=== PATIENT | female | born 1995 | race Two or more races ===

== ENCOUNTER → 2023-10-13 10:58 | Outpatient (BNV) | payer OTHER, SELFPAY ==
--- NOTE | 2023-10-13 10:58 | A.OFFVIS_ITS ---
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 she just recently stopped her son. 15 months. she has had no periods since becoming wtih him. she would like to be . with same partner that is father to her 2 boys. prior to she was on nexplanon and so she hasnt had enough recent cyc les to know if they were regular or not. she wonders about because of her emotions and her gums are bleeding which happened before during pregnancies. not worreid about her gums otherwise. Review of Systems Const Details: Counseling visit: All systems reviewed & are unremarkable except as noted in HPI and below Reports as per HPI Resp Reports as per HPI GI Reports as per HPI Musc Reports as per HPI Neuro Reports as per HPI Psych Reports as per HPI Physical Exam Const General: cooperative, healthy appearing and no acute distress Nutritional Appearance: well nourished Orientation/consciousness: oriented to person Limitations: no limitations HEENT Other: wnl Eyes Other: wnl Chest Other: easy breathing Resp Effort & Inspection: able to speak in complete sentences Skin Other: normal in appearance Neuro General: oriented to person Psych Other: see HPI Mental Status: mental status grossly normal Speech and movement: Clear speech present Attitude: cooperative Thought process: Normal thought process present Assessment & Plan Assessment & Plan (1) Irregular menstrual bleeding: Code(s): N92.6 - Irregular menstruation, unspecified Category: Medical Plan her urine test was negative - she hasnt had periods in years, nexplanon before and none during the 15months since child was born (). suggest giving 2 weeks and can return - or wait until cycle shows itself and then go from there Orders: Orders AMB HCG Urine Test Today N92.6 - Irregular menstruation, unspecified, Z32.02 - Encounter for test, result negative Coding Level of Care Code Est Pt Level 3 (57466) Diagnoses Irregular menstrual bleeding N92.6 Time Spent (min) 20 Comment teaching, documentation + coord care with onsite support
== END ==
PROVIDERS: PCP Pediatrics; Visit Provider Nurse Practitioner Family
DX: N92.6 Irregular menstruation, unspecified (principal)
CPT/HCPCS: 99213

== ENCOUNTER 2023-11-15 08:54 | Emergency (ER) | payer OTHER, SELFPAY ==
--- NOTE | ~2023-11-15 | XR_ITS ---
EXAMINATION: XR CHEST CLINICAL INFORMATION: Right-sided pleuritic chest pain. COMPARISON: None available. TECHNIQUE: 2 views of the chest were obtained. FINDINGS: Normal appearance of the cardiomediastinal silhouette. No focal airspace opacities, pleural effusion or pneumothorax. No acute osseous abnormalities. Visualized upper abdomen is within normal limits. XR/XR chest 2V IMPRESSION: 1. No acute cardiopulmonary findings. 2. No evidence of acutely displaced rib fractures.
--- NOTE | 2023-11-15 08:58 | ECG_ITS ---
Test Reason : CP Blood Pressure : / mmHG Vent. Rate : 094 BPM Atrial Rate : 094 BPM P-R Int : 126 ms QRS Dur : 088 ms QT Int : 326 ms P-R-T Axes : 043 016 026 degrees QTc Int : 407 ms Normal sinus rhythm Nonspecific T wave abnormality Abnormal ECG No previous ECGs available Referred By: Generic ED Physician Electronically Signed By:MARTY GLORIA
[2023-11-15 09:00] VITALS: BP 116/67; PULSE 104; RESP 16; TEMP 36.8; O2SAT 97; BMI 29.7
--- NOTE | 2023-11-15 09:21 | ED_ITS ---
HPI - Chest Pain General Chief Complaint: Chest Pain Stated Complaint: chest pain, shortness of breath Time Seen by Provider: 11/15/23 09:21 Source: patient Mode of arrival: ambulatory Limitations: no limitations History of Present Illness ED Provider: Dr. Iggy Weldon HPI narrative: 28-year-old female with no significant past medical history who presents emergency department for evaluation of sudden onset of right-sided pleuritic chest pain. She states the pain started last night at around 20:00 hours. She states the pain came on suddenly and is a sharp pain which is worse with breathing and with movement. She states she felt a similar pain when she was and attributed it to her son's foot being lodged under her right diaphragm. Patient is not on control pills. She traveled by car to [place] over the weekend (2 hour trip). She has not noticed any swelling in her lower extremities or abdominal pain. She denied fever, chills, sore throat, cough. She states she does feel short of breath but no dyspnea on exertion. She had nausea with 1 episode of vomiting this morning. Related Data Previous Rx's ?Medication ?Instructions ?Recorded acetaminophen 500 mg tablet 1,000 mg (2 x 500 mg) PO Q6H PRN 11/15/23 (Tylenol Extra Strength) fever or pain #20 tabs ibuprofen 400 mg tablet 400 mg PO TID PRN fever or pain 11/15/23 #30 tabs Allergies Allergy/AdvReac Type Severity Reaction Status Date / Time Penicillins Allergy Unknown Verified 11/15/23 09:02 Review of Systems 2 Review of Systems: Yes all other systems are reviewed and are negative [facility] Past Medical History [facility] Narrative: Past medical history: None. Surgical history: x2 with the last C- section 1.5 beers prior. Social history: She denies tobacco use. She denies alcohol use. She does smoke marijuana. Social History Social History Alcohol intake: former Smoked in Last 30 Days: No Substance Use Type: Marijuana Advance Directives: Yes Advance Directives Information Provided: Yes Advance Directives on File: No Physical Exam 2 Vital Signs: Vital Signs: Last Vital Signs Temp 98.2 F 11/15/23 11:32 Pulse 89 11/15/23 11:32 Resp 18 11/15/23 11:32 BP 116/67 11/15/23 11:32 Pulse Ox 98 11/15/23 11:32 O2 Del Method Room Air 11/15/23 11:32 BMI result Body Mass Index 29.7 Vital signs revealed an elevated heart rate of 104 otherwise unremarkable Exam: General: Awake, alert in no distress Head: Normocephalic, atraumatic EENT: PERRL, Lids normal, sclera normal, conjunctiva normal, nose normal , ears normal, throat without erythema or exudates Neck: Supple, no adenopathy Lung: breath sounds symmetric, no wheezing, rales or rhonchi Chest: symmetric movement, nontender Heart: regular rate and rhythm, normal S1, S2 no murmurs or rubs Abdomen: soft, non-tender, nondistended, normal bowel sounds Back: no vertebral tenderness, no CVAT Extremities: no deformities, moves all extremities symmetrically Neuro: Awake, alert, oriented, normal speech, cranial nerves intact, moves all extremities symmetrically Psych: Pleasant, cooperative Medications Administered Discontinued Medications Generic Name Dose Route Start Last Admin Trade Name Ray PRN Reason Stop Dose Admin Ketorolac Tromethamine 15 mg 11/15/23 09:45 11/15/23 10:00 Ketorolac Tromethamine 15 Mg/Ml Vial IVPUSH 11/15/23 09:46 15 mg ONCE STA Administration Ondansetron HCl 4 mg 11/15/23 09:45 11/15/23 10:00 Ondansetron Hcl 4 Mg/2 Ml Vial IVPUSH 11/15/23 09:46 4 mg ONCE ONE Administration Medical Decision Making Medical Decision Making [facility] Narrative: 28-year-old female with no significant past medical history who presents emergency department for evaluation of sudden onset of right-sided pleuritic chest pain that began at 20:00 hours yesterday. Pain is worse with breathing and movement. She feels short of breath but no dyspnea on exertion. She has not on control pills. She has had no lower extremity swelling or abdominal pain. Patient did travel to [facility] last weekend. Vital signs did reveal an elevated heart rate otherwise unremarkable. Physical examination was unremarkable with no chest wall tenderness. Differential diagnosis: ?Includes but is not limited to pulmonary embolism, pleurisy, pneumonia, bronchitis, costochondritis, chest wall pain, anemia, electrolyte abnormalities Following evaluation was ordered: CBC, CMP, PTT, D-dimer, quantitative beta- hCG, urinalysis Patient was initially treated with the following: IV insert, cardiac monitoring, O2 saturation monitoring, Toradol 15 mg IV, Zofran 4 mg IV Course: 11:16 My independent interpretation patient's laboratory evaluation as follows: CBC was normal. CMP revealed an elevated CO2 of 31. D-dimer was 152 which is below the cut off of 230 which suggests that PE is highly unlikely as the cause of her pleuritic chest pain. Urinalysis was negative. test was negative. My interpretation of the chest x-ray was negative with no findings to explain the patient's pain. Patient did get improvement of her pain from 8/10 to 4/10 g IV Toradol. At this time I believe the patient's pain is more consistent with viral pleurisy and I did discuss this with her. She was prescribed ibuprofen 400 mg 3 times a day for 4 days then as needed for pain and extra-strength Tylenol 500 mg 2 pills every 6 hours as needed for pain. She was given printed and verbal instructions and discharged home. Admission/Observation Consideration of admission/observation: Escalation of care including admission/observation considered Lab Data MDM Lab Attestation statement: I reviewed the patient's lab results. 11/15/23 09:58 11/15/23 09:58 Labs: Lab Results 11/15/23 11/15/23 Range/Units 09:57 09:58 WBC 6.6 (4.8-10.8) X10*3/uL RBC 4.65 (4.20-5.50) X10*6/uL Hgb 13.9 (12.0-16.0) g/dl Hct 40.6 (37.0-47.0) % MCV 87.3 (80.0-98.0) fL MCH 29.9 (27.0-33.0) pg MCHC 34.2 (31.0-35.0) g/dl RDW 12.6 (11.0-16.0) % Plt Count 284 (160-400) X10*3/uL MPV 8.0 L (9.4-12.3) fL Immature Gran % (Auto) 0.2 (0.0-0.4) % Neut % (Auto) 79.2 H (45-73) % Lymph % (Auto) 12.6 L (20-40) % [place] % (Auto) 7.3 (2-11) % Eos % (Auto) 0.5 (0-4) % Baso % (Auto) 0.2 (0-2) % Lymph # (Auto) 0.8 L (1.2-4.9) X10*3/uL [place] # (Auto) 0.5 (0.1-1.2) X10*3/uL Eos # (Auto) 0.0 (0.0-0.4) X10*3/uL Baso # (Auto) 0.0 (0.0-0.2) X10*3/uL Abs Immat Gran (auto) 0.01 (0.00-0.03) X10*3/uL Absolute Neuts (auto) 5.2 (2.0-8.3) x10*3/uL Absolute Nucleated RBC 0.000 (0.0-0.012) X10*3/uL Nucleated RBC % (auto) 0.0 (0.0-0.2) /100WBC APTT 33.2 (26.0-36.8) SEC D-Dimer High Sensitivty 152 NG/ML Sodium 140 (135-145) mmol/L Potassium 3.8 (3.3-5.1) mmol/L Chloride 101 (96-108) mmol/L Carbon Dioxide 31 H (22-29) mmol/L Anion Gap 12 (12-20) BUN 11 (9-16) mg/dL Creatinine 0.62 (0.5-1.4) mg/dL Estim Creat Clear Calc 120.8 Estimated GFR > 60 Random Glucose 74 (60-115) mg/dL Calcium 9.9 (8.4-10.2) mg/dL Total Bilirubin 0.6 (0.0-1.0) mg/dL AST 15 (5-31) U/L ALT 13 (0-31) U/L Alkaline Phosphatase 83 (39-117) U/L Troponin I High Sens < 2.7 (<3.5-17.0) ng/L Total Protein 8.1 H (6.5-8.0) g/dL Albumin 4.5 (3.5-5.0) g/dL Beta HCG, Quant < 2 mIU/mL Urine Color Yellow Urine Appearance Clear Urine pH 8.0 (5.0-9.0) Ur Specific [place] 1.010 (1.005-1.025) Urine Protein Negative (Neg-Trace) mg/dL Urine Glucose (UA) Negative (Negative) mg/dL Urine Ketones Negative (Negative) mg/dL Urine Blood Negative (Negative) Urine Nitrite Negative (Negative) Ur Leukocyte Esterase Trace H (Negative) Urine RBC 0-2 (0-2) /HPF Urine WBC 0-5 (0-5) /HPF Ur Squamous Epith Cells 11-20 (0-2) /HPF Urine Bacteria None Seen (None Seen) Hyaline Casts 0-2 (0-2) /LPF Independent Interpretation I performed an independent interpretation of an: Plain X-Ray Interpretation: My interpretation patient's two view chest x-ray is as follows: Normal mediastinum, no infiltrates, no acute finding to explain the patient's pain Prescription Management I considered prescription management with: Pain Medication Discharge Plan Discharge Clinical Impression: Pleurisy, Viral syndrome Patient Disposition: Home, Self-Care Instructions: Pleurisy (ED) Additional Instructions: Your laboratory evaluation was unremarkable. Your chest x-ray did not reveal any abnormality to explain your pain which is reassuring. At this time I believe that you chest pain is caused by inflammation of the lining of the lung and this is called pleurisy. This is often caused by a viral infection Take ibuprofen 400 mg pills, 1 pills every 6 hours for 4 days to reduce the inflammation that is causing your pain . After 4 days you can then take ibuprofen 400 mg pills, 1 pill 3 times a day as needed for pain. Take Tylenol (acetaminophen) 500 mg pills, 2 pills every 6 hours as needed for pain Use a heating pad on low for 15 minutes 4 to 6 times a day for the next 2-3 days on the right side of your chest to help reduce the pain. Follow-up with your doctor in 2 days. Please return to the emergency department if your symptoms get worse or if you develop any symptoms that are concerning to you. Prescriptions: New acetaminophen [Tylenol Extra Strength] 500 mg tablet 1,000 mg PO Q6H PRN (Reason: fever or pain) Qty: 20 0RF ibuprofen 400 mg tablet 400 mg PO TID PRN (Reason: fever or pain) Qty: 30 0RF Interventions: ED Discharge Assessment Last Done: 11/15/23 11:32 Discharge Date/Time: 11/15/23 11:32 Print Language: Danish
[2023-11-15] MEDS: ondansetron HCL 4 MG/2 ML VIAL IVPUSH (10:00)
[2023-11-15] MEDS: Ketorolac Tromethamine 15 MG/ML VIAL IVPUSH (10:00)
[2023-11-15 10:03] LABS: MANUAL DIFF FLAG NO
[2023-11-15 10:04] LABS: Basophils Percent Auto 0.2 % (0-2); Eosinophils Percent Auto 0.5 % (0-4); Hematocrit 40.6 % (37.0-47.0); Hemoglobin 13.9 g/dl (12.0-16.0); Imm Gran Abs Auto 0.01 X10*3/uL (0.00-0.03); Imm Gran Pct Auto 0.2 % (0.0-0.4); Lymphocytes Absolute Auto 0.8 X10*3/uL (1.2-4.9); Lymphocytes Percent Auto 12.6 % (20-40); Mean Corpuscular HGB Conc 34.2 g/dl (31.0-35.0); Mean Corpuscular Hemoglobin 29.9 pg (27.0-33.0); Mean Corpuscular Volume 87.3 fL (80.0-98.0); Monocytes Absolute Auto 0.5 X10*3/uL (0.1-1.2); Monocytes Percent Auto 7.3 % (2-11); Neutrophils Absolute Auto 5.2 x10*3/uL (2.0-8.3); Neutrophils Percent Auto 79.2 % (45-73); Platelet Count 284 X10*3/uL (160-400); Red Blood Count 4.65 X10*6/uL (4.20-5.50); Red Cell Distribution Width 12.6 % (11.0-16.0); White Blood Count 6.6 X10*3/uL (4.8-10.8)
[2023-11-15 10:05] LABS: Appearance Urine Clear; Color Urine Yellow; Glucose Urine UA Negative (Negative); Leukocyte Esterase Urine Trace (Negative); Nitrite Urine Negative (Negative); UMIC TRIGGER UACC YES; Urine Blood Negative (Negative); Urine Ketones Negative (Negative); Urine Protein Negative (Neg-Trace)
[2023-11-15 10:07] LABS: Bacteria Urine None Seen (None Seen); Hyaline Casts Urine 0-2 /LPF (0-2); RBC Urine 0-2 /HPF (0-2); WBC Urine 0-5 /HPF (0-5)
[2023-11-15 10:14] LABS: D Dimer High Sensitivity 152 NG/ML; Partial Thromboplastin Time 33.2 SEC (26.0-36.8)
[2023-11-15 10:42] LABS: Alanine Aminotransferase 13 U/L (0-31); Albumin Level 4.5 g/dL (3.5-5.0); Alkaline Phosphatase 83 U/L (39-117); Anion Gap 12 (12-20); Aspartate Amino Transferase 15 U/L (5-31); Bilirubin Total 0.6 mg/dL (0.0-1.0); Blood Urea Nitrogen 11 mg/dL (9-16); Calcium 9.9 mg/dL (8.4-10.2); Carbon Dioxide 31 mmol/L (22-29); Chloride 101 mmol/L (96-108); Creatinine Clr Calc Pharmacy 120.8; Estimated Glomerular Filt Rate > 60; Glucose Random 74 mg/dL (60-115); Potassium 3.8 mmol/L (3.3-5.1); Sodium 140 mmol/L (135-145); Total Protein 8.1 g/dL (6.5-8.0)
[2023-11-15 10:51] LABS: HCG Quantitative < 2 mIU/mL
[2023-11-15 11:32] VITALS: BP 116/67; PULSE 89; RESP 18; TEMP 36.8; O2SAT 98
[2023-11-15 11:40] LABS: Troponin-I High Sensitivity < 2.7 ng/L (<3.5-17.0)
== END 2023-11-15 11:32 | disposition home or self-care (01) ==
PROVIDERS: Emergency Provider Emergency Medicine Emergency Medical Services
DX: B34.9 Viral infection, unspecified (principal); R09.1 Pleurisy; R06.02 Shortness of breath; F12.90 Cannabis use, unspecified, uncomplicated
CPT/HCPCS: 36415; 71046; 80053; 81001; 84484; 84702; 85025; 85379; 85730; 93005; 96374; 96375; 99285; J1885; J2405

== ENCOUNTER → 2023-11-15 08:58 | Outpatient (BNV) | payer OTHER, SELFPAY | PROVIDERS: Emergency Provider Emergency Medicine Emergency Medical Services; Visit Provider Internal Medicine | DX: R07.9 Chest pain, unspecified (principal); R06.02 Shortness of breath; R94.31 Abnormal electrocardiogram [ECG] [EKG] | CPT/HCPCS: 93010 ==

== ENCOUNTER 2024-01-22 13:23 | Emergency (ER) | payer OTHER, SELFPAY ==
[2024-01-22 13:45] VITALS: BP 116/73; PULSE 87; RESP 16; TEMP 36.4; O2SAT 97; BMI 31.3
--- NOTE | 2024-01-22 13:48 | ED.GENADULT ---
HPI - General Adult General Chief complaint: Vaginal Bleeding Stated complaint: concerns Time Seen by Provider: 01/22/24 14:36 Source: patient, RN notes reviewed and old records reviewed Mode of arrival: ambulatory Limitations: no limitations History of Present Illness ED Provider: Tee Motta PA-C HPI narrative: 28-year-old female who presents to the ER for vaginal bleeding with clots that started yesterday. She recently had her menstrual cycle on January 07. Prior to this she had 1 in October and November. Prior to this she was nursing her [id number] child and had not had a menstrual cycle in years. She was previously on Nexplanon for control. She is now currently trying to get . She states her 3 menstrual cycles in October, November, December were all very heavy with significant cramping. Patient started bleeding again yesterday morning, passing large clots but not having a lot of cramping or pain. No vaginal discharge. She is concerned she may be . No history of blood clots in the past. She has not seen her OBGYN since she gave to her last child. She is changing every time she uses the bathroom, not more than a few times per day. MD complaint: Heavy vaginal bleeding Onset (ago): day(s) (1) Location: pelvis Radiation: non-radiation Severity: moderate Relieving factors: none Exacerbating factors: none Associated symptoms: denies other symptoms Treatments prior to arrival: none Related Data Previous Rx's ?Medication ?Instructions ?Recorded acetaminophen 500 mg tablet 1,000 mg (2 x 500 mg) PO Q6H PRN 11/15/23 (Tylenol Extra Strength) fever or pain #20 tabs ibuprofen 400 mg tablet 400 mg PO TID PRN fever or pain 11/15/23 #30 tabs Allergies Allergy/AdvReac Type Severity Reaction Status Date / Time Penicillins Allergy Unknown Verified 01/22/24 13:47 Review of Systems Review of Systems: Yes all other systems are reviewed and are negative [facility] Social History Social History Alcohol intake: former Substance Use Type: Marijuana Advance Directives: No Advance Directives Information Provided: Yes Physical Exam ED Vital Signs: Vital Signs - 24 hr 01/22/24 13:45 Temperature 97.5 F Pulse Rate 87 Respiratory Rate 16 Blood Pressure 116/73 Pulse Oximetry 97 Oxygen Delivery Method Room Air BMI result Body Mass Index 31.3 Appearance: Alert. Oriented X3. No acute distress. Head: normocephalic, atraumatic. Eyes: Pupils equal, round and reactive to light. ENT: Pharynx normal. No tonsillar swelling or exudate. Neck: Normal inspection. Neck supple. CVS: Normal heart rate and rhythm. Pulses normal. Respiratory: No respiratory distress. Breath sounds normal. Abdomen: Soft and nontender. +BS x4 Pelvic: Moderate amount of dark red blood in the vaginal canal, normal-appearing cervix, no blood clots, no lesions or discharge Skin: Skin warm and dry. Normal skin color. Normal skin turgor. No rashes. Extremities: No lower extremity edema. No joint swelling. Neuro/psych: Oriented X 3. No motor deficit. No sensory deficit. CN II-XII intact. Normal speech and cognition. Course Course Course Narrative: This is a Rapid Medical Examination (RME) performed by Marilu Simmons PA-C in triage. Full HPI, ROS, assessment and treatment plan per primary provider in the Main ED. 28 yo female here for eval of vaginal bleeding/ clotting x24 hours. She is currently using pads and changing them every few hours. She is not currently on control as her and her are trying to get . Reports mild abdominal cramping which is typical with her menses. LMP 01/08/24. Denies fever, chills, dysuria, hematuria, flank pain. Not on anticoagulation. Plan: labs, UA, u preg, hcg, type and screen Medical Decision Making Medical Decision Making MDM Narrative: 28-year-old female presenting for evaluation of heavy vaginal bleeding that started yesterday. Not having significant pain. Just had her menstrual cycle earlier this month. She just started getting them after nursing her last child. Has not seen her OBGYN in some time. She is hemodynamically stable. She is not having any signs or symptoms of acute blood loss anemia. Her lab work today does not show any acute anemia either. Her physical exam is reassuring with no significant bleeding on examination. At this time comfortable discharge home with outpatient follow-up with her OBGYN. Return precautions were discussed. Work note provided per request. Differential Diagnosis Differential Diagnoses: The differential diagnosis associated with the presentation includes Menometrorrhagia, dysfunctional uterine bleeding, menorrhagia, fibroids, adenomyosis, miscarriage, Lab Data MDM Lab Attestation statement: I reviewed the patient's lab results. No leukocytosis, no anemia, normal platelets 01/22/24 13:52 01/22/24 13:52 Labs: Lab Results 01/22/24 01/22/24 Range/Units 13:52 14:57 WBC 8.2 (4.8-10.8) X10*3/uL RBC 4.29 (4.20-5.50) X10*6/uL Hgb 13.0 (12.0-16.0) g/dl Hct 37.8 (37.0-47.0) % MCV 88.1 (80.0-98.0) fL MCH 30.3 (27.0-33.0) pg MCHC 34.4 (31.0-35.0) g/dl RDW 12.6 (11.0-16.0) % Plt Count 325 (160-400) X10*3/uL MPV 8.2 L (9.4-12.3) fL Immature Gran % (Auto) 0.2 (0.0-0.4) % Neut % (Auto) 60.7 (45-73) % Lymph % (Auto) 29.4 (20-40) % [place] % (Auto) 6.6 (2-11) % Eos % (Auto) 2.7 (0-4) % Baso % (Auto) 0.4 (0-2) % Lymph # (Auto) 2.4 (1.2-4.9) X10*3/uL [place] # (Auto) 0.5 (0.1-1.2) X10*3/uL Eos # (Auto) 0.2 (0.0-0.4) X10*3/uL Baso # (Auto) 0.0 (0.0-0.2) X10*3/uL Abs Immat Gran (auto) 0.02 (0.00-0.03) X10*3/uL Absolute Neuts (auto) 4.9 (2.0-8.3) x10*3/uL Absolute Nucleated RBC 0.000 (0.0-0.012) X10*3/uL Nucleated RBC % (auto) 0.0 (0.0-0.2) /100WBC Sodium 141 (135-145) mmol/L Potassium 3.8 (3.3-5.1) mmol/L Chloride 106 (96-108) mmol/L Carbon Dioxide 29 (22-29) mmol/L Anion Gap 10 L (12-20) BUN 10 (9-16) mg/dL Creatinine 0.82 (0.5-1.4) mg/dL Estim Creat Clear Calc 93.8 Estimated GFR > 60 Random Glucose 96 (60-115) mg/dL Calcium 9.6 (8.4-10.2) mg/dL Magnesium 2.1 (1.6-2.6) mg/dL Total Bilirubin 0.8 (0.0-1.0) mg/dL AST 14 (5-31) U/L ALT 12 (0-31) U/L Alkaline Phosphatase 75 (39-117) U/L Total Protein 7.5 (6.5-8.0) g/dL Albumin 4.3 (3.5-5.0) g/dL Beta HCG, Quant < 2 mIU/mL Urine Color Yellow Urine Appearance Clear Urine pH 6.0 (5.0-9.0) Ur Specific [place] >= 1.030 H (1.005-1.025) Urine Protein 30 (1+) H (Neg-Trace) mg/dL Urine Glucose (UA) Negative (Negative) mg/dL Urine Ketones Trace (Negative) mg/dL Urine Blood Large (3+) H (Negative) Urine Nitrite Negative (Negative) Ur Leukocyte Esterase Trace H (Negative) Urine RBC >20 H (0-2) /HPF Urine WBC 0-5 (0-5) /HPF Ur Squamous Epith Cells 0-2 (0-2) /HPF Urine Bacteria None Seen (None Seen) Hyaline Casts 0-2 (0-2) /LPF External Record Review External record reviewed: Office record, Outpatient record and Prior outpatient labs Tests considered The following testing was considered but not selected: Considered pelvic ultrasound however not emergently required today Critical Care Time Critical Care Time Critical Care Time: No Discharge Plan Discharge Clinical Impression: Dysfunctional uterine bleeding Patient Disposition: Home, Self-Care Instructions: Dysfunctional Uterine Bleeding (ED) Additional Instructions: Your lab workup today did not show any evidence acute blood loss anemia. Your blood level was negative. Your exam was reassuring. Recommend following up with her OBGYN. If you develop new or worsening symptoms call 911 or come back to the ER for further evaluation. Prescriptions: No Action acetaminophen [Tylenol Extra Strength] 500 mg tablet 1,000 mg PO Q6H PRN (Reason: fever or pain) Qty: 20 0RF ibuprofen 400 mg tablet 400 mg PO TID PRN (Reason: fever or pain) Qty: 30 0RF Stand Alone Forms: Work/School Release Print Language: Bulgarian
[2024-01-22 13:55] LABS: MANUAL DIFF FLAG NO
[2024-01-22 13:57] LABS: Basophils Percent Auto 0.4 % (0-2); Eosinophils Absolute Auto 0.2 X10*3/uL (0.0-0.4); Eosinophils Percent Auto 2.7 % (0-4); Hematocrit 37.8 % (37.0-47.0); Imm Gran Abs Auto 0.02 X10*3/uL (0.00-0.03); Imm Gran Pct Auto 0.2 % (0.0-0.4); Lymphocytes Absolute Auto 2.4 X10*3/uL (1.2-4.9); Lymphocytes Percent Auto 29.4 % (20-40); Mean Corpuscular HGB Conc 34.4 g/dl (31.0-35.0); Mean Corpuscular Hemoglobin 30.3 pg (27.0-33.0); Mean Corpuscular Volume 88.1 fL (80.0-98.0); Mean Platelet Volume 8.2 fL (9.4-12.3); Monocytes Absolute Auto 0.5 X10*3/uL (0.1-1.2); Monocytes Percent Auto 6.6 % (2-11); Neutrophils Absolute Auto 4.9 x10*3/uL (2.0-8.3); Neutrophils Percent Auto 60.7 % (45-73); Platelet Count 325 X10*3/uL (160-400); Red Blood Count 4.29 X10*6/uL (4.20-5.50); Red Cell Distribution Width 12.6 % (11.0-16.0); White Blood Count 8.2 X10*3/uL (4.8-10.8)
[2024-01-22 14:20] LABS: Alanine Aminotransferase 12 U/L (0-31); Albumin Level 4.3 g/dL (3.5-5.0); Alkaline Phosphatase 75 U/L (39-117); Anion Gap 10 (12-20); Aspartate Amino Transferase 14 U/L (5-31); Bilirubin Total 0.8 mg/dL (0.0-1.0); Blood Urea Nitrogen 10 mg/dL (9-16); Calcium 9.6 mg/dL (8.4-10.2); Carbon Dioxide 29 mmol/L (22-29); Chloride 106 mmol/L (96-108); Creatinine Clr Calc Pharmacy 93.8; Estimated Glomerular Filt Rate > 60; Glucose Random 96 mg/dL (60-115); Magnesium 2.1 mg/dL (1.6-2.6); Potassium 3.8 mmol/L (3.3-5.1); Sodium 141 mmol/L (135-145); Total Protein 7.5 g/dL (6.5-8.0)
[2024-01-22 14:21] LABS: HCG Quantitative < 2 mIU/mL
[2024-01-22 15:05] LABS: Appearance Urine Clear; Color Urine Yellow; Glucose Urine UA Negative (Negative); Leukocyte Esterase Urine Trace (Negative); Nitrite Urine Negative (Negative); Specific Gravity - Urine >= 1.030 (1.005-1.025); UMIC TRIGGER UACC YES; Urine Blood Large (3+) (Negative); Urine Ketones Trace mg/dL (Negative); Urine Protein 30 (1+) mg/dL (Neg-Trace)
[2024-01-22 15:25] LABS: Bacteria Urine None Seen (None Seen); Hyaline Casts Urine 0-2 /LPF (0-2); RBC Urine >20 /HPF (0-2); Squamous Epithelial Cell Urine 0-2 /HPF (0-2); WBC Urine 0-5 /HPF (0-5)
[2024-01-22 15:56] VITALS: BP 116/73; PULSE 87; RESP 16; TEMP 36.4; O2SAT 97
== END 2024-01-22 15:56 | disposition home or self-care (01) ==
PROVIDERS: Physician Assistant Medical; Emergency Provider Emergency Medicine
DX: N93.8 Other specified abnormal uterine and vaginal bleeding (principal)
CPT/HCPCS: 36415; 80053; 81001; 83735; 84702; 85025; 99283

== ENCOUNTER 2024-06-06 13:06 | Emergency (ER) | payer OTHER, SELFPAY ==
--- NOTE | ~2024-06-06 | US_ITS ---
CLINICAL HISTORY: 18 weeks preg. lower abdominal cramping OB ULTRASOUND TRANSABDOMINAL Comparison: None Findings: Estimated gestational age by today's ultrasound: 18 weeks, 3 days. Estimated date of delivery by today's ultrasound: 11/04/2024. Previously established gestational age: N/A. Biometrics: BPD: 18 weeks, 3 days HC: 18 weeks, 2 days AC: 18 weeks, 3 days FL: 18 weeks, 3 days EFW: 235 g, percentile 49th. Cardiac activity: 158 bpm. Placenta is posterior. No demonstrated evidence of previa or abruption. Closed cervix 4.1 cm length. Visually normal volume of amniotic fluid. The right ovary measures 3.0 x 1.2 x 1.6 cm. The left ovary measures 2.6 x 1.2 x 1.8 cm. IMPRESSION: 1. Single intrauterine gestation estimated at 18 weeks, 3 days by today's ultrasound criteria. This document has been electronically signed by: Lorin Falcon DO on 06/06/2024 16:13:30
[2024-06-06 13:39] VITALS: BP 112/64; PULSE 94; RESP 16; TEMP 36.9; O2SAT 98; BMI 31.4
--- NOTE | 2024-06-06 13:45 | ED.GENADULT ---
HPI - General Adult General Chief complaint: Nausea/Vomiting/Diarrhea Stated complaint: flu symptoms Time Seen by Provider: 06/06/24 16:18 Related Data Previous Rx's ?Medication ?Instructions ?Recorded acetaminophen 500 mg tablet 1,000 mg (2 x 500 mg) PO Q6H PRN 11/15/23 (Tylenol Extra Strength) fever or pain #20 tabs ibuprofen 400 mg tablet 400 mg PO TID PRN fever or pain 11/15/23 #30 tabs Allergies Allergy/AdvReac Type Severity Reaction Status Date / Time Penicillins Allergy Unknown Verified 06/06/24 13:48 [facility] Social History Social History Alcohol intake: former Substance Use Type: Marijuana Advance Directives: No Advance Directives Information Provided: No Physical Exam ED Vital Signs: Vital Signs - 24 hr 06/06/24 13:39 06/06/24 16:42 Temperature 98.4 F 98.8 F Pulse Rate 94 101 H Respiratory Rate 16 14 Blood Pressure 112/64 113/68 Pulse Oximetry 98 98 Oxygen Delivery Method Room Air Room Air BMI result Body Mass Index 31.4 Course Course Course Narrative: RME: 28 yold female 18 weeks pregant presents to the ED for nauseea and lower abdominal cramping. labs,US ordered Medical Decision Making Lab Data 06/06/24 14:11 06/06/24 14:11 Labs: Lab Results 06/06/24 06/06/24 06/06/24 Range/Units 14:10 14:11 16:48 WBC 11.1 H (4.8-10.8) X10*3/uL RBC 3.89 L (4.20-5.50) X10*6/uL Hgb 11.7 L (12.0-16.0) g/dl Hct 32.8 L (37.0-47.0) % MCV 84.3 (80.0-98.0) fL MCH 30.1 (27.0-33.0) pg MCHC 35.7 H (31.0-35.0) g/dl RDW 11.7 (11.0-16.0) % Plt Count 385 (160-400) X10*3/uL MPV 8.2 L (9.4-12.3) fL Immature Gran % (Auto) 0.5 H (0.0-0.4) % Neut % (Auto) 80.1 H (45-73) % Lymph % (Auto) 11.6 L (20-40) % [place] % (Auto) 6.1 (2-11) % Eos % (Auto) 1.5 (0-4) % Baso % (Auto) 0.2 (0-2) % Lymph # (Auto) 1.3 (1.2-4.9) X10*3/uL [place] # (Auto) 0.7 (0.1-1.2) X10*3/uL Eos # (Auto) 0.2 (0.0-0.4) X10*3/uL Baso # (Auto) 0.0 (0.0-0.2) X10*3/uL Abs Immat Gran (auto) 0.05 H (0.00-0.03) X10*3/uL Absolute Neuts (auto) 8.9 H (2.0-8.3) x10*3/uL Absolute Nucleated RBC 0.000 (0.0-0.012) X10*3/uL Nucleated RBC % (auto) 0.0 (0.0-0.2) /100WBC PT 11.8 (10.9-12.4) SEC INR 1.0 (0.9-1.1) APTT 30.8 (26.0-36.8) SEC Sodium 137 (135-145) mmol/L Potassium 3.8 (3.3-5.1) mmol/L Chloride 103 (96-108) mmol/L Carbon Dioxide 25 (22-29) mmol/L Anion Gap 13 (12-20) BUN 6 L (9-16) mg/dL Creatinine 0.52 (0.5-1.4) mg/dL Estim Creat Clear Calc 148.2 Estimated GFR > 60 Random Glucose 95 (60-115) mg/dL Calcium 9.0 D (8.4-10.2) mg/dL Total Bilirubin 0.5 (0.0-1.0) mg/dL AST 17 (5-31) U/L ALT 21 (0-31) U/L Alkaline Phosphatase 59 (39-117) U/L Total Protein 7.3 (6.5-8.0) g/dL Albumin 3.8 (3.5-5.0) g/dL Beta HCG, Quant 6150 mIU/mL Urine Color Yellow Urine Appearance Hazy Urine pH 6.0 (5.0-9.0) Ur Specific [place] 1.025 (1.005-1.025) Urine Protein Trace (Neg-Trace) mg/dL Urine Glucose (UA) Negative (Negative) mg/dL Urine Ketones >=80 (Negative) mg/dL Urine Blood Negative (Negative) Urine Nitrite Negative (Negative) Ur Leukocyte Esterase Negative (Negative) Urine Test POSITIVE H (NEGATIVE) Influenza Type A (PCR) NEGATIVE (Negative) Influenza Type B (PCR) NEGATIVE (Negative) RSV RNA Qual (PCR) NEGATIVE (Negative) SARS-CoV-2 RNA (RT-PCR) NEGATIVE (Negative) S. pyogenes GrpA MICHAEL Negative (Negative) Blood Type O Positive Discharge Plan Discharge Clinical Impression: , Pain of round ligament affecting , antepartum Patient Disposition: Home, Self-Care Instructions: (ED), Abdominal Pain in (ED) Prescriptions: No Action acetaminophen [Tylenol Extra Strength] 500 mg tablet 1,000 mg PO Q6H PRN (Reason: fever or pain) Qty: 20 0RF ibuprofen 400 mg tablet 400 mg PO TID PRN (Reason: fever or pain) Qty: 30 0RF Referrals: Physician,None [Primary Care Provider] - (Please follow-up with your OBGYN on an outpatient basis.) Print Language: Mauritanian
[2024-06-06 14:21] LABS: MANUAL DIFF FLAG NO
[2024-06-06 14:23] LABS: Basophils Percent Auto 0.2 % (0-2); Eosinophils Absolute Auto 0.2 X10*3/uL (0.0-0.4); Eosinophils Percent Auto 1.5 % (0-4); Hematocrit 32.8 % (37.0-47.0); Hemoglobin 11.7 g/dl (12.0-16.0); Imm Gran Abs Auto 0.05 X10*3/uL (0.00-0.03); Imm Gran Pct Auto 0.5 % (0.0-0.4); Lymphocytes Absolute Auto 1.3 X10*3/uL (1.2-4.9); Lymphocytes Percent Auto 11.6 % (20-40); Mean Corpuscular HGB Conc 35.7 g/dl (31.0-35.0); Mean Corpuscular Hemoglobin 30.1 pg (27.0-33.0); Mean Corpuscular Volume 84.3 fL (80.0-98.0); Mean Platelet Volume 8.2 fL (9.4-12.3); Monocytes Absolute Auto 0.7 X10*3/uL (0.1-1.2); Monocytes Percent Auto 6.1 % (2-11); Neutrophils Absolute Auto 8.9 x10*3/uL (2.0-8.3); Neutrophils Percent Auto 80.1 % (45-73); Platelet Count 385 X10*3/uL (160-400); Red Blood Count 3.89 X10*6/uL (4.20-5.50); Red Cell Distribution Width 11.7 % (11.0-16.0); White Blood Count 11.1 X10*3/uL (4.8-10.8)
[2024-06-06 14:28] LABS: Prothrombin Time 11.8 SEC (10.9-12.4)
[2024-06-06 14:31] LABS: Partial Thromboplastin Time 30.8 SEC (26.0-36.8)
[2024-06-06 14:36] LABS: IDNOW Serial# 58CA691E
[2024-06-06 14:37] LABS: Strep A Nucleic Acid Negative (Negative)
[2024-06-06 14:45] LABS: Alanine Aminotransferase 21 U/L (0-31); Albumin Level 3.8 g/dL (3.5-5.0); Alkaline Phosphatase 59 U/L (39-117); Anion Gap 13 (12-20); Aspartate Amino Transferase 17 U/L (5-31); Bilirubin Total 0.5 mg/dL (0.0-1.0); Blood Urea Nitrogen 6 mg/dL (9-16); Carbon Dioxide 25 mmol/L (22-29); Chloride 103 mmol/L (96-108); Creatinine Clr Calc Pharmacy 148.2; Estimated Glomerular Filt Rate > 60; Glucose Random 95 mg/dL (60-115); Potassium 3.8 mmol/L (3.3-5.1); Sodium 137 mmol/L (135-145); Total Protein 7.3 g/dL (6.5-8.0)
[2024-06-06 14:46] LABS: HCG Quantitative 6150 mIU/mL
[2024-06-06 15:09] LABS: Influenza A PCR NEGATIVE (Negative); Influenza B PCR NEGATIVE (Negative); Resp Syncy Virus RNA Qual PCR NEGATIVE (Negative); SARS COV2 PCR INHOUSE NEGATIVE (Negative)
--- NOTE | 2024-06-06 16:19 | PC.NURSE ---
Pt called [facility] waitingroom. was able to pass PO challenge with [employer] sandwich, frenchfries and large beverage
[2024-06-06 16:42] VITALS: BP 113/68; PULSE 101; RESP 14; TEMP 37.1; O2SAT 98
--- NOTE | 2024-06-06 16:43 | ED.NAVMDI ---
HPI - Nausea/Vomiting/Diarrhea General Chief complaint: Nausea/Vomiting/Diarrhea Stated complaint: flu symptoms Time Seen by Provider: 06/06/24 16:18 History of Present Illness HPI Narrative: Patient is a 28-year-old female presented today with having some lower abdominal pain worse with movement. There is no fever no chills there is no vaginal bleeding. Patient from home. No nausea no vomiting. Positive generalized malaise. Patient's family just got diagnosed with RSV and strep. She normally gets her OB care at [facility]. No change in bowel movement. Pain lasts for a few seconds. It is worse with position. Related Data Previous Rx's ?Medication ?Instructions ?Recorded acetaminophen 500 mg tablet 1,000 mg (2 x 500 mg) PO Q6H PRN 11/15/23 (Tylenol Extra Strength) fever or pain #20 tabs ibuprofen 400 mg tablet 400 mg PO TID PRN fever or pain 11/15/23 #30 tabs Allergies Allergy/AdvReac Type Severity Reaction Status Date / Time Penicillins Allergy Unknown Verified 06/06/24 13:48 Review of Systems Review of Systems: Positive abdominal pain a few seconds each time worse with specific movements Yes all other systems are reviewed and are negative [facility] Past Medical History Attestation statement: The following information was validated with the patient. Social History Social History Alcohol intake: former Substance Use Type: Marijuana Advance Directives: No Advance Directives Information Provided: No Physical Exam Vital Signs: Vital Signs: Last Vital Signs Temp 98.8 F 06/06/24 16:42 Pulse 101 H 06/06/24 16:42 Resp 14 06/06/24 16:42 BP 113/68 06/06/24 16:42 Pulse Ox 98 06/06/24 16:42 O2 Del Method Room Air 06/06/24 16:42 BMI result Body Mass Index 31.4 Appearance: Alert. Oriented X3. No acute distress. Eyes: Pupils equal, round and reactive to light. ENT: Pharynx normal. Neck: Normal inspection. Neck supple. No lymph nodes noted. No crepitus CVS: Normal heart rate and rhythm. Pulses normal. Normal S1 and S2 Respiratory: No respiratory distress. Breath sounds normal. No Wheezing. No rales Abdomen: Gravid uterus Skin: Skin warm and dry. Normal skin color. Normal skin turgor. Extremities: No lower extremity edema. Neurovascular intact to all extremities. No Lacerations. No Rash Neuro: Oriented X 3. No motor deficit. No sensory deficit. Moving all extermities. No slurred speech Medical Decision Making Medical Decision Making [facility] Narrative: Well-appearing not acute distress. Patient is 28 years old had an ultrasound done today. I reviewed radiology's reading which showed a heart tone about 160. Positive intrauterine . Patient's COVID flu RSV strep were all negative. Blood type is O positive there is no ABO incompatibility. Patient's white count is normal. Electrolyte is normal. In no acute distress. Awaiting urine. If it is negative will discharge patient home. [place] patient's abdomen is benign. Risk of appendicitis is low at this point. Pain is more consistent with round ligament pain. Patient's urine was negative for infection. Will discharge home. Differential Diagnosis Differential Diagnoses: The differential diagnosis associated with the presentation includes Appendicitis, UTI, related issue, round ligament pain Admission/Observation Consideration of admission/observation: Escalation of care including admission/observation considered Lab Data [facility] Lab Attestation statement: I reviewed the patient's lab results. 06/06/24 14:11 06/06/24 14:11 Labs: Lab Results 06/06/24 06/06/24 06/06/24 Range/Units 14:10 14:11 16:48 WBC 11.1 H (4.8-10.8) X10*3/uL RBC 3.89 L (4.20-5.50) X10*6/uL Hgb 11.7 L (12.0-16.0) g/dl Hct 32.8 L (37.0-47.0) % MCV 84.3 (80.0-98.0) fL MCH 30.1 (27.0-33.0) pg MCHC 35.7 H (31.0-35.0) g/dl RDW 11.7 (11.0-16.0) % Plt Count 385 (160-400) X10*3/uL MPV 8.2 L (9.4-12.3) fL Immature Gran % (Auto) 0.5 H (0.0-0.4) % Neut % (Auto) 80.1 H (45-73) % Lymph % (Auto) 11.6 L (20-40) % [place] % (Auto) 6.1 (2-11) % Eos % (Auto) 1.5 (0-4) % Baso % (Auto) 0.2 (0-2) % Lymph # (Auto) 1.3 (1.2-4.9) X10*3/uL [place] # (Auto) 0.7 (0.1-1.2) X10*3/uL Eos # (Auto) 0.2 (0.0-0.4) X10*3/uL Baso # (Auto) 0.0 (0.0-0.2) X10*3/uL Abs Immat Gran (auto) 0.05 H (0.00-0.03) X10*3/uL Absolute Neuts (auto) 8.9 H (2.0-8.3) x10*3/uL Absolute Nucleated RBC 0.000 (0.0-0.012) X10*3/uL Nucleated RBC % (auto) 0.0 (0.0-0.2) /100WBC PT 11.8 (10.9-12.4) SEC INR 1.0 (0.9-1.1) APTT 30.8 (26.0-36.8) SEC Sodium 137 (135-145) mmol/L Potassium 3.8 (3.3-5.1) mmol/L Chloride 103 (96-108) mmol/L Carbon Dioxide 25 (22-29) mmol/L Anion Gap 13 (12-20) BUN 6 L (9-16) mg/dL Creatinine 0.52 (0.5-1.4) mg/dL Estim Creat Clear Calc 148.2 Estimated GFR > 60 Random Glucose 95 (60-115) mg/dL Calcium 9.0 D (8.4-10.2) mg/dL Total Bilirubin 0.5 (0.0-1.0) mg/dL AST 17 (5-31) U/L ALT 21 (0-31) U/L Alkaline Phosphatase 59 (39-117) U/L Total Protein 7.3 (6.5-8.0) g/dL Albumin 3.8 (3.5-5.0) g/dL Beta HCG, Quant 6150 mIU/mL Urine Color Yellow Urine Appearance Hazy Urine pH 6.0 (5.0-9.0) Ur Specific [place] 1.025 (1.005-1.025) Urine Protein Trace (Neg-Trace) mg/dL Urine Glucose (UA) Negative (Negative) mg/dL Urine Ketones >=80 (Negative) mg/dL Urine Blood Negative (Negative) Urine Nitrite Negative (Negative) Ur Leukocyte Esterase Negative (Negative) Urine Test POSITIVE H (NEGATIVE) Influenza Type A (PCR) NEGATIVE (Negative) Influenza Type B (PCR) NEGATIVE (Negative) RSV RNA Qual (PCR) NEGATIVE (Negative) SARS-CoV-2 RNA (RT-PCR) NEGATIVE (Negative) S. pyogenes GrpA MICHAEL Negative (Negative) Blood Type O Positive Independent Interpretation I performed an independent interpretation of an: Ultrasound (Positive intrauterine ) Radiology Impression Discussion of test interpretation with radiology: I have reviewed the radiologist's reading. Discharge Plan Discharge Clinical Impression: , Pain of round ligament affecting , antepartum Patient Disposition: Home, Self-Care Instructions: (ED), Abdominal Pain in (ED) Prescriptions: No Action acetaminophen [Tylenol Extra Strength] 500 mg tablet 1,000 mg PO Q6H PRN (Reason: fever or pain) Qty: 20 0RF ibuprofen 400 mg tablet 400 mg PO TID PRN (Reason: fever or pain) Qty: 30 0RF Referrals: Physician,None [Primary Care Provider] - (Please follow-up with your OBGYN on an outpatient basis.) Print Language: Albanian
[2024-06-06 17:36] LABS: Appearance Urine Hazy; Color Urine Yellow; Glucose Urine UA Negative (Negative); Leukocyte Esterase Urine Negative (Negative); Nitrite Urine Negative (Negative); Specific Gravity - Urine 1.025 (1.005-1.025); Urine Blood Negative (Negative); Urine Ketones >=80 mg/dL (Negative); Urine Protein Trace mg/dL (Neg-Trace)
[2024-06-06 17:43] LABS: UPreg QC Valid YES; Urine Pregnancy POSITIVE (NEGATIVE)
[2024-06-06 18:06] VITALS: BP 113/68; PULSE 101; RESP 14; TEMP 37.1; O2SAT 98
== END 2024-06-06 18:06 | disposition home or self-care (01) ==
PROVIDERS: Physician Assistant; Emergency Provider Emergency Medicine Emergency Medical Services
DX: O21.0 Mild hyperemesis gravidarum (principal); Z3A.18 18 weeks gestation of pregnancy; Z03.818 Encounter for observation for suspected exposure to other biological agents ruled out; Z79.899 Other long term (current) drug therapy
CPT/HCPCS: 0241U; 36415; 76815; 80053; 81003; 81025; 84702; 85025; 85610; 85730; 86900; 86901; 87651; 99283

== ENCOUNTER → 2024-06-06 13:43 | Outpatient (BNV) | payer OTHER, SELFPAY | PROVIDERS: Emergency Provider Emergency Medicine Emergency Medical Services; Visit Provider Radiology Diagnostic Radiology | DX: R10.30 Lower abdominal pain, unspecified (principal); O26.892 Other specified pregnancy related conditions, second trimester | CPT/HCPCS: 76815 ==